=== PATIENT | female | born 1940 | race Caucasian/White ===

== ENCOUNTER 2017-01-04 19:32 | Emergency (ER) | payer OTHER ==
[2017-01-04 19:40] VITALS: BP 150/82; PULSE 75; RESP 18; TEMP 97.7; O2SAT 96
[2017-01-04 19:57] LABS: NITRITE,URINE NEGATIVE (NEGATIVE); PH,URINE 6.5 (5.0-7.5)
[2017-01-04 19:58] LABS: COLOR YELLOW; LEUKOCYTE ESTERASE,URINE TRACE (NEGATIVE)
[2017-01-04 20:05] LABS: BACTERIA 2+ /hpf (NONE SEEN); MUCUS TRACE /lpf (NONE-1+); RBC,URINE 25-50 /hpf (0-3)
[2017-01-04] MEDS ORDERED: NITROFURANTOIN 100MG PREPACK#2 BTL TAKEHOME ONE (20:26)
--- NOTE | 2017-01-04 20:28 | UCPHY ---
H & P Time Seen by Provider: 01/04/17 20:19 Patient Type: Established HPI/ROS: This patient complains of dysuria and urinary frequency this started today similar to previous cystitis. She notes no other associated symptoms. She was concerned other symptoms might worsen overnight so came in this evening for evaluation for potential bladder infection. No exacerbating factors noted ROS: No fevers or chills. No other constitutional symptoms. : No back pain. GI: No nausea vomiting. 7 point ROS is otherwise negative. Past Medical/Surgical History: GERD Hypertension UTIs Smoking Status: Never smoked Physical Exam: General Appearance: Pleasant 77-year-old female appears younger than her stated age Alert, no distress. Eyes: Pupils equal and round no pallor or injection. ENT, Mouth: Mucous membranes moist. Respiratory: No respiratory distress. Clear to auscultation bilaterally Cardiovascular: Regular rate and rhythm. Gastrointestinal: Abdomen is soft and nontender, no masses, bowel sounds normal. Back: No CVA tenderness Neurological: Alert with no focal deficits Skin: Warm and dry, no rashes. DIFFERENTIAL DIAGNOSIS: After history and physical exam differential diagnosis was considered for cystitis, interstitial cystitis, doubt pyelonephritis Constitutional: Initial Vital Signs Temperature (C) 36.5 C 01/04/17 19:37 Heart Rate 75 01/04/17 19:37 Respiratory Rate 18 01/04/17 19:37 Blood Pressure 150/82 H 01/04/17 19:37 O2 Sat (%) 96 01/04/17 19:37 O2 Delivery Mode Room Air Allergies/Adverse Reactions: Penicillins Allergy (Verified 12/10/15 17:56) Home Medications: Medication Instructions Recorded NEXIUM 03/02/11 Losartan Potassium 12/10/15 Nitrofurantoin Macrobid [Macrobid 100 mg PO BID #10 cap 01/04/17 100 mg (RX)] MDM/Departure - MDM Diagnostics: Urinalysis positive for leuk esterase, leukocytes, bacteria Medications Given: Discontinued Medications Nitrofurantoin (Macrobid 100mg Prepack#2) 1 btl TAKEHOME EDNOW ONE PRN Reason: Protocol Stop: 01/04/17 20:27 Last Admin: 01/04/17 20:43 Dose: 1 btl ED Course/Re-evaluation: Macrobid p.o.. I selected Macrobid given her history of swelling with penicillin I also reviewed her most recent cystitis visit here with a culture that was pansensitive E coli. She appears clinically well without evidence to suggest pyelonephritis - Depart Disposition: Home, Routine, Self-Care Clinical Impression: Cystitis Condition: Good Instructions: Urinary Tract Infection in Women (ED) Additional Instructions: Diagnosis: Bladder infection Plan: Drink plenty fluids Macrobid antibiotic Peridium (pt. has this) if needed for burning with urination Return for any significant worsening despite the treatment plan Prescriptions: Nitrofurantoin Macrobid [Macrobid 100 mg (RX)] 100 mg PO BID #10 cap Referrals: NONE *PRIMARY CARE P,. [Primary Care Provider] - As per Instructions - PQRS PQRS Measurement: 134: Depression screening and followup, PRIME MD-PHQ2 (12 years and older) Over the last 2 weeks, how often have you been bothered by any of the following problems? 1. Feeling down, depressed, or hopeless? 2. Little interest or pleasure in doing things? Patient answered no to both 1 and 2 130: Documentation of medications. Reviewed all patient medications, doses, route and frequency. 226: Do you smoke? [No.] 47: 65 and older: Advanced care planning. Patient has no advance directive 51: 18 years old and older with diagnosis of COPD, spirometry performance. NA 52: 18 years old and older with COPD and symptoms of COPD or FEV1<60% predicted prescribed a B Agonist. NA
== END 2017-01-04 20:39 | disposition home or self-care (01) ==
LOC: CED 19:32
DX: N30.00 Acute cystitis without hematuria (principal); Z87.442 Personal history of urinary calculi
CPT/HCPCS: 81003-PO; 81015-PO; 99214-PO; G0463-PO

== ENCOUNTER → 2017-03-27 | Outpatient (CLI) | payer OTHER | LOC: BRMIMAGING 10:33 | PROVIDERS: ATTEND Family Medicine | DX: Z12.31 Encounter for screening mammogram for malignant neoplasm of breast (principal); Z80.3 Family history of malignant neoplasm of breast | CPT/HCPCS: G0202 ==

== ENCOUNTER → 2017-11-27 | Outpatient (CLI) | payer OTHER | LOC: FIMAGING 08:11 | PROVIDERS: ATTEND Family Medicine | DX: M41.85 Other forms of scoliosis, thoracolumbar region (principal); M21.752 Unequal limb length (acquired), left femur; M43.16 Spondylolisthesis, lumbar region; Z96.652 Presence of left artificial knee joint ==

== ENCOUNTER → 2018-04-23 | Outpatient (CLI) | payer OTHER | LOC: BRMIMAGING 11:07 | PROVIDERS: ATTEND Family Medicine | DX: Z12.31 Encounter for screening mammogram for malignant neoplasm of breast (principal); Z80.3 Family history of malignant neoplasm of breast ==

== ENCOUNTER → 2018-05-12 | Outpatient (CLI) | payer OTHER | DX: R92.8 Other abnormal and inconclusive findings on diagnostic imaging of breast (principal) ==

== ENCOUNTER 2018-09-17 18:51 | Emergency (ER) | payer OTHER ==
[2018-09-17 19:05] VITALS: BP 170/81
--- NOTE | 2018-09-17 19:29 | EDPHY ---
H & P Time Seen by Provider: 09/17/18 18:57 HPI/ROS: HPI Urinary complaints. 78-year-old female by private vehicle. This patient has a history of frequent urinary tract infections. She presents to the emergency department with sudden onset dysuria and pelvic pressure classic of her previous urinary tract infection starting at 6:30 a.m. This morning. She last had a UTI 2-3 months ago and she was treated with Macrobid for this. She denies fever. She has not had back pain. ROS: Constitutional: No fever, no chills. No weakness. Respiratory: No cough. No shortness of breath. Cardiac: No chest pain, no palpitations. Gastrointestinal: As above, no vomiting, no diarrhea. Genitourinary: No hematuria. As above. Musculoskeletal: No back pain. No neck pain. No myalgias or arthralgias. Skin: No rashes. Neurological: No headache. No focal weakness or altered sensation. Past medical history: Hypertension, frequent urinary tract infections, hysterectomy, left total knee replacement. Social history: Nonsmoker. Here by herself. No alcohol. Physical Exam: General Appearance: Alert, no distress. This patient is responding to questions appropriately and in full sentences. This patient appears well- hydrated and well-nourished. Eyes: Pupils equal and round no pallor or injection. No lid edema, erythema or injection. Gastrointestinal: Abdomen is soft and nontender, no masses, bowel sounds normal. No focal tenderness at McBurney's point. No King sign. Neurological: Motor sensory function is grossly intact. Cranial nerves are normal. Gait is normal. Skin: Warm and dry, no rashes. Musculoskeletal: No CVA tenderness on palpation. Extremities are symmetrical. All joints range without pain or impingement. Psychiatric: No agitation. No depression. Database: EKG: Imaging: Procedures: Emergency department course: Triage vital signs reviewed. She is hypertensive. Vital signs are otherwise normal. Urine dip consistent with infection. Small amount of remaining urine sent for culture to the [facility]. She is allergic to penicillins. She will be started on ciprofloxacin in the emergency department. She feels comfortable going home and I feel she is safe for discharge. She will be prescribed ciprofloxacin 500 mg twice daily for 5 days as well as Pyridium. Follow-up and return to emergency department precautions reviewed with her. She feels comfortable going home. All of her questions were answered. She was discharged from the emergency department in good condition. Differential Diagnosis: The differential diagnosis on this patient includes but is not limited to urinary tract infection. Pyelonephritis, appendicitis, diverticulitis unlikely. This represents a partial list of diagnoses considered. These considerations are based on history, physical exam, past history, reassessment and diagnostic testing. Smoking Status: Never smoked Constitutional: Initial Vital Signs Temperature (C) 36.6 C 09/17/18 18:57 Heart Rate 90 09/17/18 18:57 Respiratory Rate 16 09/17/18 18:57 Blood Pressure 170/81 H 09/17/18 18:57 O2 Sat (%) 94 09/17/18 18:57 O2 Delivery Mode Room Air Allergies/Adverse Reactions: Penicillins Allergy (Verified 09/17/18 18:56) Swelling/neck,face,throat Home Medications: Medication Instructions Recorded NEXIUM 03/02/11 Losartan Potassium 12/10/15 Ciprofloxacin [Cipro] 500 mg PO BID #10 tab 09/17/18 Phenazopyridine HCl [Pyridium] 200 mg PO TID #10 tab 09/17/18 Medical Decision Making - Data Points Point of Care Test Results: Urine Dip Collection Date 09/17/18 Collection Time 19:32 Specific [place] (1.002-1.030) 1.030 PH (5.0-7.5) 6.0 Leukocytes (Negative) 1+ Nitrites (Negative) Positive Protein (Negative) 2+ Glucose (Negative) Negative Ketones (Negative) Trace Urobilnogen (0.2-1.0 EU) 1.0 Bilirubin (Negative) Test Not Performed Blood (Negative) 3+ Departure - Departure Disposition: Home, Routine, Self-Care Clinical Impression: Urinary tract infection Condition: Good Instructions: Urinary Tract Infection in Women (ED) Additional Instructions: Read and follow provided instructions. Follow-up with your primary care physician on Thursday for re-evaluation as discussed. Take medication as prescribed. Take antibiotics through entire course of treatment. Return to the emergency department for worsening symptoms, back pain, nausea and vomiting, fever or other serious concerns. Referrals: NONE *PRIMARY CARE P,. [Primary Care Provider] - As per Instructions Prescriptions: Ciprofloxacin [Cipro] 500 mg PO BID #10 tab Phenazopyridine HCl [Pyridium] 200 mg PO TID #10 tab
[2018-09-17] MEDS ORDERED: CIPROFLOXACIN 500 MG TAB PO ONE (19:30)
== END 2018-09-17 19:47 | disposition home or self-care (01) ==
LOC: CED 18:51
DX: N39.0 Urinary tract infection, site not specified (principal); I10 Essential (primary) hypertension; Z88.0 Allergy status to penicillin; Z90.710 Acquired absence of both cervix and uterus

== ENCOUNTER 2018-11-04 19:50 | Emergency (ER) | payer OTHER ==
[2018-11-04 20:02] VITALS: BP 172/83
--- NOTE | 2018-11-04 20:40 | EDPHY ---
H & P Time Seen by Provider: 11/04/18 20:00 HPI/ROS: CHIEF COMPLAINT: Urinary urgency and frequency History by patient HISTORY OF PRESENT ILLNESS: 78-year-old woman with history of urinary tract infections presents complaining of 2 days of urgency, frequency and dysuria. She complains of suprapubic pressure. She says she has a history of scoliosis and always has back pain from that but is not been worse since her urinary symptoms. She denies any fever. It feels similar to when she had a urinary tract infection 1 month ago. She said the antibiotic she took for that cleared up the time. She denies any nausea or vomiting. She has used peridium in the past for the symptoms with relief. REVIEW OF SYSTEMS: As in HPI, and all other systems reviewed and are negative Smoking Status: Never smoked Physical Exam: General Appearance: Alert, nontoxic-appearing Head: normocephalic, atraumatic Eyes: Pupils equal and round, reactive to light, no pallor or injection. Mouth: Mucous membranes moist. Oropharynx clear Neck: No bony tenderness, full range of motion Respiratory: Normal, effort, lungs are clear to auscultation. No wheezes, rales or rhonchi. Cardiovascular: Regular rate and rhythm. S1, S2, no murmurs, gallops or rubs appreciated Gastrointestinal: Abdomen is soft and nontender, no masses, bowel sounds normal. Back: No CVA tenderness, no bony tenderness Neurological: Awake, alert and oriented x 3, cranial nerves 2-12 intact, no pronator drift, normal gait, Skin: Warm and dry, no rashes. Musculoskeletal: No deformities or tenderness. Extremities: full range of motion, no edema, DP2+ bilat Psychiatric: Patient has normal affect, there is no agitation. Constitutional: Initial Vital Signs Temperature (C) 36.6 C 11/04/18 19:59 Heart Rate 84 11/04/18 19:59 Respiratory Rate 18 11/04/18 19:59 Blood Pressure 172/83 H 11/04/18 19:59 O2 Sat (%) 96 11/04/18 19:59 O2 Delivery Mode Room Air Allergies/Adverse Reactions: Penicillins Allergy (Verified 11/04/18 19:58) Swelling/neck,face,throat Home Medications: Medication Instructions Recorded NEXIUM 03/02/11 Losartan Potassium 03/14/16 Nitrofurantoin Monohyd/M-Cryst 100 mg PO BID #10 capsule 11/04/18 [Macrobid 100 mg Capsule] Phenazopyridine HCl [Pyridium] 200 mg PO TID #6 tab 11/04/18 MDM/Departure - [facility] ED Course/Re-evaluation: 70-year-old woman with history of frequent prior UTIs presents with classic UTI symptoms. UA dip is positive for blood and trace leukocyte esterase. We will go ahead and treat her empirically. I reviewed her prior microbiology and she had E coli infections in the past. We will treat her with Macrobid and Pyridium. Urine has been sent for culture. We discussed return precautions and I am recommending follow up with her primary care physician or urologist if she continues to get frequent urinary tract infections. - Depart Disposition: Home, Routine, Self-Care Clinical Impression: Urinary tract infection Qualifiers: Urinary tract infection type: site unspecified Hematuria presence: with hematuria Qualified Code(s): N39.0 - Urinary tract infection, site not specified Condition: Good Instructions: Urinary Tract Infection in Women (ED) Additional Instructions: You were seen by Dr. Saba Moreno today. Take antibiotics as prescribed. I recommend probiotics in between doses of antibiotics. The you may take Pyridium for symptoms of burning frequency and urgency. Return for any worsening or new concerns. Prescriptions: Nitrofurantoin Monohyd/M-Cryst [Macrobid 100 mg Capsule] 100 mg PO BID #10 capsule Phenazopyridine HCl [Pyridium] 200 mg PO TID #6 tab Referrals: Alka Fajardo MD [Primary Care Provider] - As per Instructions
[2018-11-04] MEDS ORDERED: NITROFURANTOIN 100MG PREPACK#2 BTL TAKEHOME ONE (21:01)
[2018-11-04] MEDS ORDERED: PHENAZOPYRIDINE HCL 200 MG TAB PO ONE (21:01)
== END 2018-11-04 21:15 | disposition home or self-care (01) ==
LOC: CED 19:50
DX: N39.0 Urinary tract infection, site not specified (principal); R31.9 Hematuria, unspecified
CPT/HCPCS: 99284-ER